=== PATIENT | male | born 1980 | race African-American/Black ===

== ENCOUNTER 2017-07-16 05:50 | Emergency (ER) | payer BC ==
[~2017-07-16] VITALS: Ht 188 cm; Wt 136.4 kg
[~2017-07-16 05:50] MED LIST: ADVAIR 250/28 DISKU1 IH; ALBUTEROL0.09 MG/A2 IH; ALBUTEROL0.09 MG/A4 IH; ATROVENT I0.2 MG/1 M IH; PREDNISONE10 MG PO; PREDNISONE20 MG PO; RT ALBUTER2.5 MG/0.5 IH; [UNRECOGNIZED DRUG - OTHER] IH
[2017-07-16 05:53] VITALS: TEMP 98.2
[2017-07-16] MEDS ORDERED: PREDNISONE20 MG PO (06:13)
[2017-07-16] MEDS ORDERED: TOPAMAX 25MG25 M1 PO (06:34)
[2017-07-16] MEDS ORDERED: HUMIRA40 MG/0.8 SQ (06:34)
[2017-07-16 07:12] VITALS: BP 121/88; PULSE 94
== END 2017-07-16 07:10 | disposition home or self-care (01) ==
LOC: COL.ER 05:50
DX: J45.901 Unspecified asthma with (acute) exacerbation (principal)
CPT/HCPCS: J7512